=== PATIENT | female | born 1985 | race American Indian/Alaskan Native ===

== ENCOUNTER 2022-05-11 21:14 | Emergency (ER) | payer SELFPAY ==
[2022-05-12] MEDS ORDERED: hydroCHLOROthiazide 25 MG TAB PO ONE (08:03)
[2022-05-12] MEDS ORDERED: cloNIDine 0.1 MG TAB PO ONE (08:04)
--- NOTE | 2022-05-12 08:38 | Emergency Department Report ---
ED General Adult HPI - General Chief complaint: High BP Stated complaint: BLOOD PRESSURE/EKG Time Seen by Provider: 05/12/22 08:13 Source: patient Mode of arrival: Ambulatory Limitations: No Limitations - History of Present Illness Initial comments: 36-year-old morbidly obese female who was recently diagnosed with high blood pressure and was given a trial of metoprolol and hydrochlorothiazide by primary doctor about 2 months ago. About 3 weeks ago she ran out of the antihypertensive and call her primary doctor who has been out of town for the last 1 month. Patient have not been taking antihypertensive for the last 3 weeks. She went to EMBLEM [employer]USER TEND[employer] appointment yesterday and they noticed high blood pressure and patient was sent to follow-up at [facility] yesterday evening. They noticed high blood pressure and advised patient follow- up in the emergency room. Patient denies any headache or visual changes at this point. No shortness of breath or chest pain reported. No other modifying or associated factors reported. Does also report that for the last 21 days she has been having menstrual period nonstop. And this is what the EMBLE[employer] FUSER TENDER was trying to evaluate for. Severity scale (0 -10): 0 - Related Data Previous Rx's Medication Instructions Recorded Last Taken Type Cyclobenzaprine [Flexeril 10 MG 10 mg PO ONCE #20 tablet 10/04/17 Unknown Rx TAB] Naproxen [Naprosyn] 500 mg PO BID #30 tablet 10/04/17 Unknown Rx Ferrous Sulfate [Iron 325 MG] 325 mg PO DAILY 30 Days #30 tab NS 05/12/22 Unknown Rx hydroCHLOROthiazide [HCTZ] 25 mg PO QDAY 30 Days #30 tablet NS 05/12/22 Unknown Rx lisinopriL [Lisinopril] 10 mg PO DAILY 30 Days #30 tab NS 05/12/22 Unknown Rx Allergies Allergy/AdvReac Type Severity Reaction Status Date / Time No Known Allergies Allergy Unverified 10/04/17 12:53 ED Review of Systems ROS: Stated complaint: BLOOD PRESSURE/EKG Other details as noted in HPI Comment: All other systems reviewed and negative Cardiovascular: other (elevated blood pressure ) ED Past Medical Hx - Past Medical History Hx Hypertension: Yes (no meds) Hx Asthma: Yes - Social History Smoking Status: Former Smoker Substance Use Type: Alcohol, Marijuana, Non Opiate Pain - Medications Home Medications: Home Medications Medication Instructions Recorded Confirmed Last Taken Type Cyclobenzaprine [Flexeril 10 MG 10 mg PO ONCE #20 tablet 10/04/17 Unknown Rx TAB] Naproxen [Naprosyn] 500 mg PO BID #30 tablet 10/04/17 Unknown Rx Ferrous Sulfate [Iron 325 MG] 325 mg PO DAILY 30 Days #30 tab NS 05/12/22 Unknown Rx hydroCHLOROthiazide [HCTZ] 25 mg PO QDAY 30 Days #30 tablet NS 05/12/22 Unknown Rx lisinopriL [Lisinopril] 10 mg PO DAILY 30 Days #30 tab NS 05/12/22 Unknown Rx ED Physical Exam - General Limitations: No Limitations General appearance: alert, in no apparent distress - Head Head exam: Present: atraumatic, normal inspection - Eye Eye exam: Present: normal appearance Pupils: Present: normal accommodation - ENT ENT exam: Present: normal exam, normal orophraynx, mucous membranes moist - Neck Neck exam: Present: normal inspection, full ROM. Absent: tenderness - Respiratory Respiratory exam: Present: normal lung sounds bilaterally. Absent: respiratory distress, accessory muscle use - Cardiovascular Cardiovascular Exam: Present: regular rate, normal rhythm, normal heart sounds - GI/Abdominal GI/Abdominal exam: Present: soft, normal bowel sounds. Absent: tenderness - Extremities Exam Extremities exam: Present: normal inspection, full ROM, normal capillary refill - Back Exam Back exam: Present: normal inspection. Absent: tenderness - Neurological Exam Neurological exam: Present: alert, oriented X3 - Psychiatric Psychiatric exam: Present: normal affect - Skin Skin exam: Present: warm, normal color ED Course Vital Signs 05/11/22 05/12/22 05/12/22 21:57 07:57 08:09 Temperature 99.1 F Pulse Rate 110 H 107 H 107 H Respiratory 16 16 Rate Blood Pressure 163/106 233/118 Blood Pressure 233/118 [Right] O2 Sat by Pulse 97 98 Oximetry - Reevaluation(s) Reevaluation #1: 05/12/22 10:49 here with hypertensive crisis -- given Clonidine and HCTZ and will go ahead and check routine labs for any infectious process or electrolyte abnormality-- Reevaluation #2: 05/12/22 13:21 I spoke with the patient about the above findings who told me that her Creative/Art Director is sending her a medication that will help stop the bleeding. I discussed discharging her home on ferrous sulfate with a close follow up with her PCP/ or gas main fitter helper-- ED Medical Decision Making - Lab Data Result diagrams: 05/12/22 09:58 05/12/22 09:58 - EKG Data -: EKG Interpreted by Me EKG shows normal: sinus rhythm Rate: tachycardia - EKG Data 05/12/22 13:29 Noted with sinus tachycardia at a rate of 105 bpm, normal QTC with likely left atrial enlargement and this abnormal ECG. Critical care attestation.: If time is entered above; I have spent that time in minutes in the direct care of this critically ill patient, excluding procedure time. ED Disposition Clinical Impression: Hypertensive crisis Menorrhagia Qualifiers: Menorrhagia type: with regular cycle Qualified Code(s): N92.0 - Excessive and frequent menstruation with regular cycle Disposition: HOME / SELF CARE / HOMELESS Is pt being admited?: No Does the pt Need Aspirin: No Condition: Stable Instructions: Hypertension (ED) Additional Instructions: Increase your vegetable content that will help improve your iron consumption Take your ferrous sulfate as prescribed to help your hemoglobin blood level Call and follow-up with your EMBLEM FUSER TENDER/primary doctor in the next 3 to 5 days for progress Please do not hesitate to call or return to emergency room if your bleeding worsens after taking the medication your EMBLEM FUSER TENDER was prescribing for you Prescriptions: hydroCHLOROthiazide [HCTZ] 25 mg PO QDAY 30 Days #30 tablet NS Ferrous Sulfate [Iron 325 MG] 325 mg PO DAILY 30 Days #30 tab NS lisinopriL [Lisinopril] 10 mg PO DAILY 30 Days #30 tab NS Referrals: IZA OLIVA MD [Primary Care Provider] - 3-5 Days Time of Disposition: 13:28
[2022-05-12 09:23] LABS: Bilirubin,Urine NEG (Negative); Blood,Urine LG (Negative); Color,Urine Yellow (Yellow); Urobilinogen,Urine < 2.0 mg/dL (<2.0)
[2022-05-12 09:32] LABS: Amphetamine Screen,Urine Negative; Benzodiazepines Screen,Urine Negative; Cannabinoid Screen,Urine Negative; Cocaine Screen,Urine Negative; Methadone Screen,Urine Negative; Opiate Screen,Urine Negative
[2022-05-12 09:53] LABS: WBC,Urine < 1.0 /HPF (0.0-6.0)
--- NOTE | 2022-05-12 10:06 | Electrocardiograph Report ---
[facility] Test Date: 2022-05-11 Test Time: 22:02:21 Pat Name: MARILU GUTIERREZ Department: Room: Gender: F Grit Blaster: LEIDY : 1985 Requested By: ROSALINDA GTZ Order Number: [id number] Reading MD: Isaac Gonzalez Measurements Intervals [place] Rate: 105 P: 50 MS: 159 QRS: 51 QRSD: 83 T: 266 QT: 361 QTc: 477 Interpretive Statements Sinus tachycardia Probable left atrial enlargement Repol abnrm suggests ischemia, inferior leads No previous ECG available for comparison Electronically Signed On 05-12-2022 10:06:37 EDT by Isaac Gonzalez
[2022-05-12 11:15] LABS: Basophils % (Auto) 0.3 % (0.0-1.8); Eosinophils # (Auto) 0.3 K/mm3 (0.0-0.4); Eosinophils % (Auto) 3.1 % (0.0-4.3); Hematocrit 24.9 % (30.3-42.9); Hemoglobin 7.3 gm/dl (10.1-14.3); Lymphocytes # (Auto) 2.1 K/mm3 (1.2-5.4); Lymphocytes % (Auto) 19.2 % (13.4-35.0); Mean Corpuscular HGB Conc 30 % (30-34); Monocytes # (Auto) 0.6 K/mm3 (0.0-0.8); Monocytes % (Auto) 5.5 % (0.0-7.3); Platelet Count 490 K/mm3 (140-440); Red Blood Count 4.44 M/mm3 (3.65-5.03)
[2022-05-12 11:27] LABS: Mean Corpuscular Volume 56 fl (79-97); Red Cell Distribution Width 24.9 % (13.2-15.2)
[2022-05-12 11:42] LABS: Alanine Aminotransferase 7 units/L (7-56); Albumin 3.9 g/dL (3.9-5); BUN/Creatinine Ratio 14; Blood Urea Nitrogen 13 mg/dL (7-17); Calcium 8.4 mg/dL (8.4-10.2); Hemolysis Index 0
[2022-05-12 12:00] LABS: INR 1.07 (0.87-1.13); Partial Thromboplastin Time 37.5 Sec. (24.2-36.6)
[2022-05-12 14:09] VITALS: BP 163/106
== END 2022-05-12 14:07 | disposition home or self-care (01) ==
LOC: ED 21:14
DX: I16.9 Hypertensive crisis, unspecified (principal); N92.0 Excessive and frequent menstruation with regular cycle; J45.909 Unspecified asthma, uncomplicated; Z87.891 Personal history of nicotine dependence; Z79.899 Other long term (current) drug therapy
CPT/HCPCS: 36415; 80053; 80307; 81001; 83690; 83880; 84484; 85025; 85610; 85730; 93005; 99283